=== PATIENT | male | born 1950 | race Caucasian/White ===

== ENCOUNTER 2024-10-11 14:52 | Emergency (ER) | payer BC, SELFPAY ==
[2024-10-11 14:56] VITALS: BP 154/107
--- NOTE | 2024-10-11 16:35 | ED.GENMED ---
History of Present Illness
General
Chief Complaint: Depression
Time Seen by Provider: 10/11/24 15:21
History of Present Illness
History of Present Illness:
74-year-old male with history of depression presenting to the emergency department for continued depression. Patient reports for the past 4 years he has been dealing with depression, after going through a divorce with his . Most recently, over
the holidays, he was in an argument with his son and he was 302-ed, which he feels was unwarranted. He denies any present suicidal or homicidal ideations. He ran out of his medications a few weeks ago for his depression. He denies any medical
complaints of chest pain, difficulty breathing, abdominal pain, fever. He denies drug or alcohol abuse
Past History
Past History
ED Past Medical History: Psychiatric and Other
ED Past Surgical History: Orthopedic
Social History
Tobacco: Smoker
Alcohol: Occasional
Personal:
Phy Exam
Physical Exam
Physical Exam:
General: Well-appearing, no clinical signs of dehydration, nontoxic and in no acute distress
HEENT: protecting airway
Neck: appears supple
CV: Normal heart rate
Resp: No accessory muscle use, no increased work of breathing
Abd: no distension
Extremities: No deformities, no swelling
Neuro: alert, no focal neurologic deficit
: deferred
Rectal: deferred
Psych: Normal affect
Skin: Intact
Course
Orders/Labs/Results
Orders:
Orders
10/11/24 15:07
1:1 Observation - Suicide/ Violent Behavior As Directed
10/11/24 15:47
Crisis Consult Urgent
Reason for Consult: depression
Vital Signs
Initial and Last Documented VS:
Initial Vital Signs
Temp Pulse Resp BP Pulse Ox
97.7 F 87 20 154/107 100
10/11/24 14:56 10/11/24 14:56 10/11/24 14:56 10/11/24 14:56 10/11/24 14:56
Last Documented Vital Signs
Temp Pulse Resp BP Pulse Ox
97.7 F 87 20 154/107 100
10/11/24 14:56 10/11/24 14:56 10/11/24 14:56 10/11/24 14:56 10/11/24 14:56
MDM/Problems Addressed
MDM/Problems Addressed:
74-year-old male with history of depression presenting for increased depressive symptoms. Vital signs are significant for mild hypertension.
On exam, is resting comfortably, no acute distress. Patient without acute medical complaints. He does not presently appear to be a threat to himself or others. He has been taking his medication for the past few weeks because he ran out. At this
time do not feel patient warrants 302. Will discuss with crisis for their evaluation.
16:35 - In discussion with crisis, feel patient is cleared for discharge, has been seen at [facility] in the past, advised to follow-up with [facility] for refill of his medications. Return precautions discussed.
*Critical Care Note
Total Time (30-74mins, 75-104mins- exclusive of procedures): Not Applicable
ED Attending Note
-
Portions of this chart may have been created with voice recognition software.� Occasional wrong word or��sound alike� substitutions may have occurred due to the inherent limitations of voice recognition software.
Discharge Plan
Interventions
Interventions:
*Risk Screen - Suicide Last Done: 10/11/24 15:00
Discharge Date and Time
Print Language: ROMANSH
[2024-10-11 16:46] VITALS: BP 153/98; BMI 31.2
== END 2024-10-11 17:05 | disposition home or self-care (01) ==
LOC: EMR 14:52
PROVIDERS: EMERGENCY PHYSICIAN Student in an Organized Health Care Education/Training Program; FAMILY PHYSICIAN Family Medicine
DX: F32.A Depression, unspecified (principal); F17.200 Nicotine dependence, unspecified, uncomplicated
CPT/HCPCS: 99282